=== PATIENT | male | born 1995 | race Caucasian/White ===

== ENCOUNTER 2017-04-13 18:24 | Emergency (ER) | payer SELFPAY ==
[2017-04-13 18:44] VITALS: BP 162/90
[2017-04-13] MEDS ORDERED: Diphtheria,Pertussis(Acell),Tetanus Vaccine 0.5 ML SDV IM ONE (19:04)
[2017-04-13] MEDS ORDERED: Bacitracin Oint 1 GM U/D Packet TOP ONE (19:05)
[2017-04-13] MEDS ORDERED: Lidocaine 1% 20 ML MDV INJECT ONE (19:05)
--- NOTE | 2017-04-13 19:10 | EDM.PDOC ---
ED HPI GENERAL MEDICAL PROBLEM - General Chief Complaint: Laceration Stated Complaint: CUT RT LEG WITH HOP STRAINER Time Seen by Provider: 04/13/17 19:06 Source of Information: Reports: Patient History Limitations: Reports: No Limitations - History of Present Illness INITIAL COMMENTS - FREE TEXT/NARRATIVE: pt arrived with a laceration on the rt thigh. He was using a grinder hardboard and ended up with the laceration. He is not current with his tetanus. The wound was 6 cm in length. Onset: Today Duration: Hour(s): Location: Reports: Lower Extremity, Right Associated Symptoms: Reports: No Other Symptoms Right Upper Leg Pain Score (Numeric/FACES): 5 - Related Data Allergies Allergy/AdvReac Type Severity Reaction Status Date / Time No Known Allergies Allergy Verified 04/13/17 18:40 Home Meds: Home Meds NK [No Known Home Meds] 04/13/17 [History] Past Medical History - Past Health History Medical/Surgical History: Denies Medical/Surgical History Social & Family History - Tobacco Use Smoking Status *Q: Never Smoker - Caffeine Use Caffeine Use: Reports: Coffee, Soda - Recreational Drug Use Recreational Drug Use: No ED ROS GENERAL - Review of Systems Review Of Systems: See Below Constitutional: Reports: No Symptoms HEENT: Reports: No Symptoms Respiratory: Reports: No Symptoms Cardiovascular: Reports: No Symptoms Endocrine: Reports: No Symptoms GI/Abdominal: Reports: No Symptoms : Reports: No Symptoms Musculoskeletal: Reports: No Symptoms Skin: Reports: Other (pt has a 6 cm laceration on the rt mid thigh area. ) Neurological: Reports: No Symptoms ED EXAM, SKIN/RASH Exam: See Below Text/Narrative:: pt has a 6 cm laceration on the rt mid thigh ant. Exam Limited By: No Limitations General Appearance: Alert, Anxious Extremities: Other ( Pt has 6 cm lacertion on the mid ant thigh. ) Neurological: Alert, Oriented, Normal Cognition Course - Vital Signs Last Recorded V/S: Last Vital Signs Temp 37.3 C 04/13/17 18:40 Pulse 111 H 04/13/17 18:40 Resp 16 04/13/17 18:40 BP 162/90 H 04/13/17 18:40 Pulse Ox 98 04/13/17 18:40 - Orders/Labs/Meds Orders: Active Orders 24 hr Category Date Time Status Vaccines to be Administered [RC] PER UNIT ROUTINE Care 04/13/17 19:05 Active Meds: Medications Discontinued Medications Generic Name Dose Route Start Last Admin Trade Name Freq PRN Reason Stop Dose Admin Bacitracin 1 dose 04/13/17 19:05 04/13/17 19:16 Bacitracin Oint 1 Gm TOP 04/13/17 19:06 1 dose ONETIME ONE Administration Diphtheria/Tetanus/Acell Pertussis 0.5 ml 04/13/17 19:04 04/13/17 19:17 Adacel IM 04/13/17 19:05 0.5 ml .ONCE ONE Administration Lidocaine HCl 20 ml 04/13/17 19:05 04/13/17 19:16 Xylocaine 1% INJECT 04/13/17 19:06 20 ml ONETIME ONE Administration - Re-Assessments/Exams Free Text/Narrative Re-Assessment/Exam: 04/13/17 19:49 pt hAS A 6 CM LACERATION ON THE RT ANTERIOR MID THIGH. tHE AREA WAS IRRIGATED WITH A LITER OF SALINE. tHE WOUND WAS INFILTRATED WITH 1% LIDOCAINE. tHE WOUND WAS CLOSED IN A LAYERED FASHION WITH 5-0 CHROMIC AND 5-0 PROLENE. iT WAS DRESSED WITH BACATRACIN AND A PRESSURE DRESSING. tHE PRESSURE DRESSING CAN COME OFF TOMORROW AND LARGE BANDAIDS CAN BE APPLIED. Departure - Departure Time of Disposition: 19:52 Disposition: Home, Self-Care 01 Condition: fair Clinical Impression: Laceration of right thigh - Discharge Information Forms: ED Department Discharge Care Plan Goals: KEEP WOUND CLEAN AND DRY, KEEP IT COVERED, NO FURTHER OINTMENTS, MOTRIN 600MG Q6H NEEDED FOR PAIN, SR IN 9-10 DAYS, KEFLEX 500MG TID, TYLENOL #3 1 TAB Q6H PRN FOR PAIN. - My Orders Last 24 Hours: My Active Orders 04/13/17 19:05 Vaccines to be Administered [RC] PER UNIT ROUTINE - Assessment/Plan Last 24 Hours: My Active Orders 04/13/17 19:05 Vaccines to be Administered [RC] PER UNIT ROUTINE
== END 2017-04-13 20:16 | disposition home or self-care (01) ==
LOC: JP.ED 18:24
DX: S71.111A Laceration without foreign body, right thigh, initial encounter (principal); W31.89XA Contact with other specified machinery, initial encounter
CPT/HCPCS: 12002; 90471; 90715; 99282-25; 99283-25; A4217

== ENCOUNTER 2024-07-23 17:53 | Emergency (ER) | payer MEDICAID, OTHER ==
[2024-07-23] MEDS: Sodium Chloride 0.9% 10 ML Syringe FLUSH PRN (18:28)
[2024-07-23] MEDS: Ondansetron 4 MG/2 ML SDV IVPUSH ONE (18:28)
[2024-07-23] MEDS: fentaNYL 100 MCG/2 ML SDV IVPUSH ONE (18:33)
[2024-07-23] MEDS: fentaNYL 50 MCG/ML SDV IVPUSH ONE (19:19)
[2024-07-23 21:47] VITALS: BP 142/91; PULSE 81
== END 2024-07-23 21:55 | disposition home or self-care (01) ==
LOC: JP.ED 17:53
DX: S68.116A Complete traumatic metacarpophalangeal amputation of right little finger, initial encounter (principal); Z79.899 Other long term (current) drug therapy; W23.1XXA Caught, crushed, jammed, or pinched between stationary objects, initial encounter; Y93.89 Activity, other specified; Y99.0 Civilian activity done for income or pay
CPT/HCPCS: 73140; 96374; 96375; 96376; 99283; J2405; J3010; J3490